=== PATIENT | female | born 1985 | race Caucasian/White ===

== ENCOUNTER 2016-05-30 12:48 | Emergency (ER) | payer BC ==
--- NOTE | ~2016-05-30 | ER ---
PATIENT'S NAME: MARIBEL BARNETT [facility] AGE: 30 Y [address] ROOM: [place] [address] LOCATION: [facility] ADMIT DATE: 05/30/2016 ER/Outpatient Report DISCHARGE DATE: 05/30/2016 FAMILY PHYSICIAN: Matty Segovia MD ATTENDING PHYSICIAN: Faith Roberts Time of Arrival: 1250 hours. Time of Exam: 1300 hours. CHIEF COMPLAINT: Abdominal pain. HISTORY OF PRESENT ILLNESS: The patient states having upper abdominal pain that began last night. States that she has had some chills, nausea, has vomited approximately 7 times. Has had some diarrhea stools, the last being just prior to arrival. She denies having any blood in the vomitus or the diarrhea. Did not have any pain with urination, has not had any frequency. She is not able to state her last menstrual period. She states her control is one that she takes continuously and does not have periods. ALLERGIES: NO KNOWN ALLERGIES. MEDICATIONS: control. PAST MEDICAL HISTORY: Benign. PAST SURGERIES: , D and C. SOCIAL HISTORY: She does smoke half pack per day. Denies use of drugs and alcohol. She has not taken any medications at home for this pain. REVIEW OF SYSTEMS: All negative other than those mentioned in the HPI. PHYSICAL EXAMINATION: VITAL SIGNS: She weighed 73.7 kg. Blood pressure is 106/73, pulse of 107, respirations 20, temperature of 97.4 tympanic, O2 saturation was 99% on room air. GENERAL: She is awake, alert, and oriented x4. PATIENT'S NAME: MARIBEL BARNETT [facility] AGE: 30 Y [address] ROOM: [place] [address] LOCATION: [facility] ADMIT DATE: 05/30/2016 ER/Outpatient Report DISCHARGE DATE: 05/30/2016 FAMILY PHYSICIAN: Matty Segovia MD ATTENDING PHYSICIAN: Faith Roberts SKIN: [place], warm, and dry. RESPIRATIONS: Even and nonlabored. Lung sounds are clear throughout. HEART: Regular rate and rhythm. ABDOMEN: Soft and nondistended. Bowel sounds are present. She is tender primarily in the left upper quadrant. Negative Wilson's. EMERGENCY ROOM COURSE: Saline lock was initiated. Fluids of normal saline were started at a wide- open rate. She was given Zofran 4 mg IV. LABORATORY DATA: Lab work was drawn. CBC is within normal limits. Chem panel was done, it is within normal limits. Amylase is 46 with a lipase of 322. Clean-catch UA was obtained, it is normal. We did do a monospot, it is negative. Urine is negative. Her vital signs remained stable throughout the ER course. The fluids were finished. IMPRESSION: Gastroenteritis. PLAN: Home, rest, and fluids. Recommended doing clear liquids today and gradually increasing her diet. No milk products for the next 3-4 days. Tylenol or ibuprofen as needed. Did write a prescription for Zofran. If her pain persists, she should follow up with her primary provider. She verbalized understanding. ESTEFANY ALVAREZ APRN FOR MD TAMMY GUZMÁN/maxim /[id number] d: 05/30/16 2159 t: 06/01/16 1442, OUTPATIENT REPORT
[~2016-05-30 12:48] MED LIST: ACETAMINOPHEN325 MG PO; COLACE100 MG PO; FEOSOL325 MG PO; MOTRIN800 MG PO; PERCOCET 5-3251 EACH PO; PRENATAL 1+1)(P1 TAB PO
[2016-05-30 13:30] LABS: BILIRUBIN URINE NEGATIVE (NEGATIVE); BLOOD URINE NEGATIVE /UL (NEGATIVE); COLOR URINE YELLOW (YELLOW); GLUCOSE URINE NEGATIVE (NEGATIVE); KETONE URINE NEGATIVE (NEGATIVE); LEUKOCYTES URINE NEGATIVE /UL (NEGATIVE); NITRITE URINE NEGATIVE (NEGATIVE); PROTEIN URINE NEGATIVE (NEGATIVE); SPEC GRAVITY URINE 1.015 (1.003-1.035); TURBIDITY URINE CLEAR (CLEAR); UROBILINOGEN URINE NORMAL (NORMAL)
[2016-05-30 13:36] LABS: BASOPHIL % 0.6 %; EOSINOPHIL # 0.2 K/uL (0.0-0.5); EOSINOPHIL % 2.2 %; HEMATOCRIT 42.2 % (33.0-46.0); IMMATURE GRANULOCYTE % 0.4 %; LYMPHOCYTE % 14.5 %; MCH 29.7 pg (27.0-34.0); MCHC 33.2 gm/dL (32.0-36.5); MCV 89.6 fl (83.0-98.0); MONOCYTE # 0.6 K/uL (0.0-1.0); MONOCYTE % 8.2 %; MPV 9.1 fl (9.4-12.4); NEUTROPHIL # (ANC) 5.2 K/uL (1.8-7.8); NEUTROPHIL % 74.1 %; NRBC % 0 /100WBC (0-0.00); PLATELET COUNT 263 K/uL (150-450); RBC 4.71 M/uL (3.50-5.00)
[2016-05-30 13:50] LABS: ALBUMIN 3.5 gm/dL (3.5-5.0); ALK PHOS 67 IU/L (33-138); ALT 20 IU/L (12-78); ANION GAP 12.7 (10.0-19.0); AST 18 IU/L (10-40); BLOOD UREA NITROGEN 17 mg/dL (6-24); CHLORIDE 107 mMol/L (96-110); CO2 24 mMol/L (22-32); CREATININE 0.7 mg/dL (0.5-1.1); ESTIMATED GFR (MDRD EQUATION) > 60; POTASSIUM 3.7 mMol/L (3.7-5.1); SODIUM 140 mMol/L (135-145); TOTAL PROTEIN 6.7 g/dL (6.0-8.4)
[2016-05-30 13:51] LABS: TOTAL BILIRUBIN 0.5 mg/dL (0.0-1.5)
[2016-10-11] MEDS ORDERED: PRILOSEC20 MG PO (09:21)
[2016-10-11] MEDS ORDERED: LUTERA-28 TABL1 EACH PO (09:22)
[2016-10-11] MEDS ORDERED: TYLENOL EXTRA500 MG PO (09:23)
[2016-10-11] MEDS ORDERED: ALEVE220 MG PO (09:24)
[2016-10-12] MEDS ORDERED: CARAFATE1 GM PO (10:41)
== END 2016-05-30 14:30 | disposition disaster alternative care site (69) ==
LOC: GMED 12:48
PROVIDERS: Nurse Practitioner Family
DX: K52.9 Noninfective gastroenteritis and colitis, unspecified (principal); F17.210 Nicotine dependence, cigarettes, uncomplicated; Z98.890 Other specified postprocedural states
CPT/HCPCS: J2405; J7030

== ENCOUNTER → 2016-10-07 | Outpatient (CLI) | payer SELFPAY ==
[~2016-10-07] MED LIST changes: +ALEVE220 MG PO; +CARAFATE1 GM PO; +LUTERA-28 TABL1 EACH PO; +PRILOSEC20 MG PO; +TYLENOL EXTRA500 MG PO
== END | disposition disaster alternative care site (69) ==
LOC: GLAB 00:32
DX: R19.7 Diarrhea, unspecified (principal)

== ENCOUNTER → 2016-10-12 | Day surgery (SDC) | payer SELFPAY ==
[~2016-10-12] VITALS: Ht 157.5 cm; Wt 72.3 kg
== END | disposition disaster alternative care site (69) ==
LOC: GPOC 10-11 11:00 → GEND 07:47 → GPOC 11:00
PROC: 0DB98ZX Excision of Duodenum, Via Natural or Artificial Opening Endoscopic, Diagnostic (ICD-10-PCS; principal; 2016-10-12)
PROC: 0DB68ZX Excision of Stomach, Via Natural or Artificial Opening Endoscopic, Diagnostic (ICD-10-PCS; 2016-10-12)
DX: K29.50 Unspecified chronic gastritis without bleeding (principal); J45.909 Unspecified asthma, uncomplicated; Z98.890 Other specified postprocedural states; Z79.899 Other long term (current) drug therapy; Z88.8 Allergy status to other drugs, medicaments and biological substances
CPT/HCPCS: J2001; J7030